=== PATIENT | male | born 1995 | race African-American/Black ===

== ENCOUNTER 2018-08-20 01:57 | Emergency (ER) | payer OTHER ==
[2018-08-20 02:22] VITALS: BP 138/80; PULSE 66; TEMP 98.5; BMI 40.1
[2018-08-20] MEDS ORDERED: DIPHTH,PERTUSS(ACELL),TET 0.5 ML DISP.SYRIN IM ONE (02:42)
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
== END 2018-08-20 02:53 | disposition home or self-care (01) ==
LOC: FER 01:57
PROC: 3E0234Z Introduction of Serum, Toxoid and Vaccine into Muscle, Percutaneous Approach (ICD-10-PCS; principal; 2018-08-20)
DX: S41.151A Open bite of right upper arm, initial encounter (principal); W50.3XXA Accidental bite by another person, initial encounter; Y93.89 Activity, other specified; Y92.89 Other specified places as the place of occurrence of the external cause; Z87.891 Personal history of nicotine dependence
CPT/HCPCS: 90715; 99281-25

== ENCOUNTER 2019-04-03 21:37 | Emergency (ER) | payer OTHER ==
[2019-04-03 21:44] VITALS: BP 131/81; PULSE 89; TEMP 98.6; BMI 40.8
[2019-04-03] MEDS ORDERED: IBUPROFEN 600 MG TABLET (FP) PO ONE ×2 (22:00→22:01)
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
== END 2019-04-03 22:04 | disposition home or self-care (01) ==
LOC: FER 21:37
DX: S16.1XXA Strain of muscle, fascia and tendon at neck level, initial encounter (principal); F17.210 Nicotine dependence, cigarettes, uncomplicated; V43.52XA Car driver injured in collision with other type car in traffic accident, initial encounter; Y93.89 Activity, other specified; Y92.410 Unspecified street and highway as the place of occurrence of the external cause
CPT/HCPCS: 99281-25

== ENCOUNTER 2022-05-05 20:25 | Emergency (ER) | payer SELFPAY ==
[2022-05-05 20:45] VITALS: BP 136/86; PULSE 84; TEMP 98.3; BMI 45.1
[2022-05-05] MEDS ORDERED: KETOROLAC TROMETHAMINE 30 MG/1 ML VIAL IM ONE (22:10)
[2022-05-05] MEDS ORDERED: KETOROLAC TROMETHAMINE 30 MG/1 ML VIAL ONE (22:36)
== END 2022-05-05 23:49 | disposition home or self-care (01) ==
LOC: JERFT 20:25
PROC: 3E023GC Introduction of Other Therapeutic Substance into Muscle, Percutaneous Approach (ICD-10-PCS; principal; 2022-05-05)
DX: S89.92XA Unspecified injury of left lower leg, initial encounter (principal); W01.0XXA Fall on same level from slipping, tripping and stumbling without subsequent striking against object, initial encounter
CPT/HCPCS: 73562-TC-LT-FY; 99284-25

== ENCOUNTER 2022-06-18 06:52 | Day surgery (SDC) | payer OTHER ==
[2022-06-16 16:11] VITALS: BMI 48.1
[2022-06-18] MEDS ORDERED: FENTANYL CITRATE/PF 50 MCG/ML VIAL ONE (07:29)
[2022-06-18] MEDS ORDERED: BUPIVACAINE LIPOSOME/PF (EXPAREL) 266 MG/20 ML VIAL ONE (07:29)
[2022-06-18] MEDS ORDERED: BUPIVACAINE HCL/PF 0.5% (5 MG/ML) 30 ML VIAL IJ ONE (07:29)
[2022-06-18] MEDS ORDERED: BUPIVACAINE HCL/PF 0.5% (5MG/ML) 10 ML VIAL ONE (07:29)
[2022-06-18] MEDS ORDERED: MIDAZOLAM HCL 2 MG/2 ML SINGLE DOSE VIAL ONE (07:29)
[2022-06-18] MEDS ORDERED: PROPOFOL 20 ML ONE ×4 (08:04→09:45)
[2022-06-18] MEDS ORDERED: SUCCINYLCHOLINE CHLORIDE 200 MG/10 ML SYRINGE ONE (08:04)
[2022-06-18] MEDS ORDERED: VANCOMYCIN 1,000 MG VIAL (RESTRICTED TO ID ONLY) ONE (08:57)
[2022-06-18] MEDS ORDERED: oxyCODONE HCL 5 MG TABLET PO PRN ×2 (10:24)
[2022-06-18] MEDS ORDERED: ACETAMINOPHEN 1000 MG/100 ML BAG IVPB ONE (10:24)
[2022-06-18] MEDS ORDERED: ONDANSETRON 4 MG/2 ML VIAL IVPUSH PRN (10:24)
[2022-06-18] MEDS ORDERED: LACTATED RINGERS SOLUTION 1,000 ML IV SCH (10:30)
[2022-06-18 11:08] VITALS: TEMP 97.7
[2022-06-18 11:28] VITALS: RESP 18
[2022-06-18] MEDS ORDERED: ACETAMINOPHEN INJECTION 100 ML IVPB ONE (11:33)
[2022-06-18 12:34] VITALS: BP 130/70; PULSE 78
[2022-06-18] MEDS ORDERED: ACETAMINOPHEN 500 MG TABLET (FP) PO SCH (18:00)
== END 2022-06-18 13:05 | disposition home or self-care (01) ==
LOC: FASU 06:52
PROVIDERS: ATTEND Orthopaedic Surgery
PROC: 0LQR0ZZ Repair Left Knee Tendon, Open Approach (ICD-10-PCS; principal; 2022-06-18 08:31)
DX: M66.862 Spontaneous rupture of other tendons, left lower leg (principal)
CPT/HCPCS: 94760